=== PATIENT | female | born 1945 | race African-American/Black ===

== ENCOUNTER 2018-08-18 13:26 | Emergency (ER) | payer OTHER ==
[~2018-08-18] VITALS: Ht 162.6 cm; Wt 81.6 kg
[2018-08-18] MEDS ORDERED: cloNIDine HCL 0.1 MG TAB ONE (13:53)
[2018-08-18] MEDS ORDERED: cloNIDine HCL 0.1 MG TAB PO ONE (14:00)
[2018-08-18] MEDS ORDERED: LIDOCAINE 1% HCL (LOCAL ANESTH.) INJ 20ML MDV IJ ONE (15:30)
[2018-08-18] MEDS ORDERED: ACETAMINOPHEN 325 MG TAB PO ONE (15:45)
[2018-08-18 15:54] VITALS: BP 143/96
== END 2018-08-18 16:00 | disposition home or self-care (01) ==
LOC: EDBD 13:26 → ER 13:31
DX: S01.112A Laceration without foreign body of left eyelid and periocular area, initial encounter (principal); S16.1XXA Strain of muscle, fascia and tendon at neck level, initial encounter; E11.9 Type 2 diabetes mellitus without complications; I10 Essential (primary) hypertension; Z88.0 Allergy status to penicillin; Z88.6 Allergy status to analgesic agent; W01.0XXA Fall on same level from slipping, tripping and stumbling without subsequent striking against object, initial encounter; Y93.01 Activity, walking, marching and hiking; Y92.481 Parking lot as the place of occurrence of the external cause; Y99.8 Other external cause status
CPT/HCPCS: 12013; 70450; 72125; 93005; 99284; J2001